=== PATIENT | male | born 1955 ===

== ENCOUNTER → 2025-09-01 | Outpatient (CLI) | payer OTHER ==
[~2025-09-01] MED LIST: ACET-2247 PO; BICT1TAB PO; CARB1TAB36 PO; CYAN500T56 PO; OXYB-34 PO; POLY17PO47 PO; ROSU20TA98 PO; SENN-395 PO; TAMS0.4C94 PO
== END | disposition home or self-care (01) ==
LOC: TELEHEALTH 07:34
PROVIDERS: ATTEND Internal Medicine
DX: I95.1 Orthostatic hypotension (principal); D64.9 Anemia, unspecified; E53.8 Deficiency of other specified B group vitamins; E78.5 Hyperlipidemia, unspecified; G20.A1 Parkinson's disease without dyskinesia, without mention of fluctuations; K21.9 Gastro-esophageal reflux disease without esophagitis; N40.1 Benign prostatic hyperplasia with lower urinary tract symptoms; Z21 Asymptomatic human immunodeficiency virus [HIV] infection status; Z79.899 Other long term (current) drug therapy; Z86.19 Personal history of other infectious and parasitic diseases
CPT/HCPCS: Q3014